=== PATIENT | female | born 1990 | race Caucasian/White ===

== ENCOUNTER 2016-07-04 12:31 | Emergency (ER) | payer MEDICAID ==
[~2016-07-04] VITALS: Ht 157.5 cm; Wt 52.2 kg
--- NOTE | 2016-07-04 12:55 | Emergency Room Report ---
History of Present Illness General Chief Complaint: General Complaint Source: Patient Present Illness HPI 26-year-old female presents to emergency Department complaining of episode of syncope yesterday and hitting her head on the ground. Patient states that she was inside a pizza place and was waiting in line to order when she began to feel very hot and slightly dizzy. Patient states she was leaning against the railing and fainted. Patient reports tenderness the left side of the head patient denies bleeding patient denies oral trauma patient denies nausea or vomiting. Patient denies palpitations or chest pain prior to episode of fainting. Patient will states that she did eat a small breakfast morning and may not have drink enough water.denies hx of drug use. pt. denies recent illness or hx of anemia or blood loss. She denies history of syncope, seizures or personal cardiac history. denies , states she is currently on her menstrual cycle, and she regularly has heavy periods that last 5-7 days.denies hematuria, dysuria, frequency, urgency. Denies CP, Palpitations, LOC, AMS, dizziness, Changes in Vision, Sensation, paresthesias, or a sudden severe headache. Allergies: Coded Allergies: No Known Allergies (Unverified , 07/04/16) Patient History Past Medical History: see triage record Past Surgical History: none Pertinent Family History: none Now: No Immunizations: UTD Reviewed Nursing Documentation: PMH: Agreed, PSxH: Agreed Nursing Documentation-PMH Past Medical History: No Stated History Review of Systems All Other Systems: negative except mentioned in HPI Physical Exam Vital Signs Date Time Temp Pulse Resp B/P Pulse Ox O2 Delivery O2 Flow Rate FiO2 07/04/16 12:40 98.1 74 20 103/68 100 Room Air Sp02 EP Interpretation: reviewed, normal General Appearance: no apparent distress, alert, GCS 15, non-toxic Head: normocephalic, atraumatic - TTP to the left temporal area, no swelling, bruising, or erythema. Eyes: bilateral eye EOMI, bilateral eye PERRL, bilateral eye normal inspection ENT: hearing grossly normal, normal pharynx, no angioedema, normal voice, TMs + canals normal, uvula midline Neck: full range of motion, supple/symm/no masses Respiratory: lungs clear, normal breath sounds, speaking full sentences Cardiovascular #1: regular rate, rhythm, no edema, normal capillary refill Gastrointestinal: non tender, soft, no guarding, no rebound Rectal: deferred Genitourinary: normal inspection, no CVA tenderness Musculoskeletal: back normal, gait/station normal, normal range of motion, non- tender, no calf tenderness Neurologic: alert, oriented x3, responsive, motor strength/tone normal, sensory intact, cerebellar normal, normal gait, speech normal, no pronator, other - negative washburn's Psychiatric: judgement/insight normal, memory normal, mood/affect normal, no suicidal/homicidal ideation Skin: normal color, no rash, warm/dry, well hydrated Lymphatic: no adenopathy Medical Decision Making PA Attestation Dr. Delgadillo is my supervising Physician whom patient management has been discussed with. Diagnostic Impression: Primary Impression: Concussion syndrome Additional Impression: Syncope, non cardiac ER Course Pt. presents to the ED c/o possible syncopal episode at lunch time yesterday, first occurrence - Pt. currently on her period. -denies CORTES at this time, reports ttp only no bruising. Ddx considered but are not limited to dysrhythmia, methamphetamine, hypoglycemia , hypovolemia, , intracranial process, vasovagal. Vital signs: are WNL, pt. is afebrile H&PE are most consistent with syncopal episode most likely situational/ vasovagal. ORDERS: -12-lead EK BPM NSR , no acute ST changes -interpreted by Dr. Delgadillo -CBC, BMP: WNL / unremarkable ED INTERVENTIONS: -none required at this time. DISCHARGE: At this time pt. is stable for d/c to home. Will provide printed patient care instructions, and any necessary prescriptions. Care plan and follow up instructions have been discussed with the patient prior to discharge. Labs Test 07/04/16 13:10 White Blood Count 6.5 K/UL (4.8-10.8) Red Blood Count 4.19 M/UL (4.20-5.40) Hemoglobin 12.0 G/DL (12.0-16.0) Hematocrit 37.3 % (37.0-47.0) Mean Corpuscular Volume 89 FL (80-99) Mean Corpuscular Hemoglobin 28.6 PG (27.0-31.0) Mean Corpuscular Hemoglobin Concent 32.1 G/DL (32.0-36.0) Red Cell Distribution Width 13.0 % (11.6-14.8) Platelet Count 268 K/UL (150-450) Mean Platelet Volume 7.4 FL (6.5-10.1) Neutrophils (%) (Auto) 65.9 % (45.0-75.0) Lymphocytes (%) (Auto) 25.8 % (20.0-45.0) Monocytes (%) (Auto) 6.9 % (1.0-10.0) Eosinophils (%) (Auto) 0.2 % (0.0-3.0) Basophils (%) (Auto) 1.2 % (0.0-2.0) Sodium Level 140 mEQ/L (135-145) Potassium Level 3.8 mEQ/L (3.4-4.9) Chloride Level 98 mEQ/L (98-107) Carbon Dioxide Level 28 mEQ/L (20-30) Anion Gap 14 (5-15) Blood Urea Nitrogen 8 mg/dL (7-23) Creatinine 0.8 mg/dL (0.5-0.9) Estimat Glomerular Filtration Rate > 60 mL/min (>60) Glucose Level 95 mg/dL (74-106) Calcium Level 9.5 mg/dL (8.6-10.2) EKG Diagnostic Results EP Interpretation: interpreted by Dr. Delgadillo Rate: normal - 68 Rhythm: NSR ST Segments: no acute changes ASA given to the pt in ED: No PA Scribe Text interpreted by Dr. Delgadillo Last Vital Signs Date Time Temp Pulse Resp B/P Pulse Ox O2 Delivery O2 Flow Rate FiO2 07/04/16 12:40 98.1 74 20 103/68 100 Room Air Disposition: HOME, SELF-CARE Condition: Stable Scripts Acetaminophen* (TYLENOL EXTRA STRENGTH*) 500 Mg Tablet 500 MG ORAL Q6H, #30 TAB 0 Refills Prov: Sri Bajwa 07/04/16 Patient Instructions: Concussion, Adult, [id number], Syncope, [id number] Additional Instructions: Take medications as directed. Follow up with PCP in 3-5 days Return sooner to ED if new symptoms occur, or current symptoms become worse. - Please note that this Emergency Department Report was dictated using webmemixing plant dumper technology software, occasionally this can lead to erroneous entry secondary to interpretation by the dictation equipment. Sri Bajwa Jul 04, 2016 12:55
[2016-07-04 13:25] LABS: BASOPHILS % (AUTO) 1.2 % (0.0-2.0); EOSINOPHILS % (AUTO) 0.2 % (0.0-3.0); LYMPHOCYTES % (AUTO) 25.8 % (20.0-45.0); MEAN CORPUSCULAR HEMOGLOBIN 28.6 PG (27.0-31.0); MEAN CORPUSCULAR HGB CONC 32.1 G/DL (32.0-36.0); MEAN CORPUSCULAR VOLUME 89 FL (80-99); MEAN PLATELET VOLUME 7.4 FL (6.5-10.1); MONOCYTES % (AUTO) 6.9 % (1.0-10.0); NEUTROPHILS % (AUTO) 65.9 % (45.0-75.0); PLATELET COUNT 268 K/UL (150-450); RED BLOOD COUNT 4.19 M/UL (4.20-5.40); WHITE BLOOD COUNT 6.5 K/UL (4.8-10.8)
[2016-07-04 13:41] LABS: ANION GAP 14 (5-15); CALCIUM 9.5 mg/dL (8.6-10.2); CARBON DIOXIDE 28 mEQ/L (20-30); CHLORIDE 98 mEQ/L (98-107); CREATININE 0.8 mg/dL (0.5-0.9); GLOMERULAR FILTRATION RATE > 60 mL/min (>60); HEMOLYSIS 5; POTASSIUM 3.8 mEQ/L (3.4-4.9); SODIUM 140 mEQ/L (135-145)
[2016-07-04] MEDS ORDERED: TYLENOL EXTRA500 MG ORAL (13:53)
[2016-07-04 14:10] VITALS: BP 93/57
--- NOTE | 2016-07-05 20:26 | Cardiology Report ---
APPROVED REPORT EKG Measurement Heart [id number] Normal sinus rhythm Normal ECG
== END 2016-07-04 14:12 | disposition home or self-care (01) ==
LOC: EMR 13:13
DX: R55 Syncope and collapse (principal); F07.81 Postconcussional syndrome
CPT/HCPCS: 36415; 80048; 85025; 93005; 99283